=== PATIENT | male | born 1970 | race Caucasian/White ===

== ENCOUNTER 2018-11-25 06:27 | Day surgery (SDC) | payer OTHER ==
[2018-11-24 10:07] LABS: HEMATOCRIT 46.7 % (42.0-54.0); HEMOGLOBIN 16.8 g/dL (13.5-17.5); MCH 30.9 pg (26.0-34.0); MEAN PLATELET VOLUME 9.7 fL (7.4-10.4); RBC 5.43 10x6/uL (4.20-6.10); RDW 13.1 % (11.5-14.5); WBC 6.2 10x3/uL (4.8-10.8)
[~2018-11-25] VITALS: Ht 172.7 cm; Wt 90.7 kg
[~2018-11-25 06:27] MED LIST: LISINOPRIL10 MG PO; MOBIC7.5 MG PO; UNISOM SLEEP AI25 MG PO; ZOCOR20 MG PO
[2018-11-25 07:13] VITALS: BP 141/94; BMI 30.4
[2018-11-25] MEDS ORDERED: HYDROCODON-ACE1 EAC7 PO (13:04)
[2018-11-25] MEDS ORDERED: FUROSEMIDE20 MG PO (13:05)
[2018-11-25] MEDS ORDERED: FLOMAX0.4 MG PO (13:05)
--- NOTE | 2018-11-25 14:08 | NUR ---
1350-REC'D FROM RR ALERT AND AWAKE, VSS, PAIN 2/10. ASSISTED TO RESTROOM X 2, ABLE TO URINATE, SSX 3 TO ABD CDI.
--- NOTE | 2018-11-25 14:31 | NUR ---
1418- C/O NAUSEA, NO VOMITTING AT PRESENT. PER ORDERS ADMINISTERED ZOFRAN 4MG IVP, TOLERATED WELL.
--- NOTE | 2018-11-25 15:04 | NUR ---
1445- IV DISCONTINUED FROM RIGHT HAND WITH CATH INTACT. DISPOSED INTO SHARPS. TOLERATED WELL WITHOUT COMPLAINTS
--- NOTE | 2018-11-25 15:05 | NUR ---
1500- DISCONITNUED HOME VIA W/C ACCOMPANIED WITH . REVIEWED DISCHARGE INSTRUCTIONS, VERBALIZED UNDERSTANDING, COPY WITH SPOUSE
[2018-11-30 15:15] VITALS: Ht 172.7 cm; Wt 90.7 kg
== END 2018-11-25 15:00 | disposition home or self-care (01) ==
LOC: D.OPS 06:27
PROVIDERS: Anesthesiology; ATTEND Surgery
DX: K40.20 Bilateral inguinal hernia, without obstruction or gangrene, not specified as recurrent (principal); Z01.812 Encounter for preprocedural laboratory examination